=== PATIENT | male | born 1995 | race Caucasian/White ===

== ENCOUNTER 2022-06-12 13:24 | Emergency (ER) | payer MEDICAID, OTHER ==
[~2022-06-12] VITALS: Ht 182.9 cm; Wt 97.0 kg
[2022-06-12] MEDS ORDERED: DOXY100C2 PO (16:39)
[2022-06-12] MEDS ORDERED: INDO50SU RE (16:39)
[2022-06-12 16:45] VITALS: BP 126/77
[2022-06-12] MEDS ORDERED: IBUPROFEN 800 MG TAB PO ONE (16:45)
[2022-06-12] MEDS ORDERED: cefTRIAXone SOD 1,000 MG VL IM ONE (16:45)
== END 2022-06-12 17:09 | disposition home or self-care (01) ==
LOC: ER 13:24
DX: N45.1 Epididymitis (principal); Z79.2 Long term (current) use of antibiotics; Z79.899 Other long term (current) drug therapy
CPT/HCPCS: 76870; 96372; 99284; J0696